=== PATIENT | male | born 1985 | race Caucasian/White ===

== ENCOUNTER 2018-10-30 11:00 | Day surgery (SDC) | payer OTHER ==
[~2018-10-30] VITALS: Ht 177.8 cm; Wt 81.2 kg
[~2018-10-30 11:00] MED LIST: NS 1,000 ML IV SCH; VITMTA PO
[2018-10-30] MEDS ORDERED: LIDOCAINE 2% MDV 20 ML VIAL As Ordered ONE (12:55)
[2018-10-30] MEDS ORDERED: PROPOFOL 200 MG/20 ML VIAL As Ordered ONE (12:55)
--- NOTE | 2018-10-30 14:39 | ROOR ---
Patient Name: Tc Hess Procedure Date: 10/30/2018 1:55 PM Date of : 1985 Age: 33 Room: [facility] Gender: Male Note Status: Finalized Procedure: Upper GI endoscopy Indications: Positive celiac serologies Providers: Jaret Arauz MD Referring MD: LYNN BLAND MD Requesting Provider: Medicines: Monitored Anesthesia Care Complications: No immediate complications. Procedure: Pre-Anesthesia Assessment: - Prior to the procedure, a History and Physical was performed, and patient medications and allergies were reviewed. The patient is competent. The risks and benefits of the procedure and the sedation options and risks were discussed with the patient. All questions were answered and informed consent was obtained. Patient identification and proposed procedure were verified by the physician, the nurse and the anesthesiologist in the procedure room. Mental Status Examination: alert and oriented. Airway Examination: normal oropharyngeal airway and neck mobility. Respiratory Examination: clear to auscultation. CV Examination: normal. Prophylactic Antibiotics: The patient does not require prophylactic antibiotics. Prior Anticoagulants: The patient has taken no previous anticoagulant or antiplatelet agents. ASA Grade Assessment: II - A patient with mild systemic disease. After reviewing the risks and benefits, the patient was deemed in satisfactory condition to undergo the procedure. The anesthesia plan was to use monitored anesthesia care (MAC). Immediately prior to administration of medications, the patient was re-assessed for adequacy to receive sedatives. The heart rate, respiratory rate, oxygen saturations, blood pressure, adequacy of pulmonary ventilation, and response to care were monitored throughout the procedure. The physical status of the patient was re-assessed after the procedure. The Endoscope was introduced through the mouth, and advanced to the second part of duodenum. The upper GI endoscopy was accomplished without difficulty. The patient tolerated the procedure well. Findings: Mucosal changes including longitudinal furrows, crepe paper esophagus and longitudinal markings were found in the middle third of the esophagus and in the lower third of the esophagus. Biopsies were obtained from the proximal and distal esophagus with cold forceps for histology of suspected eosinophilic esophagitis. Verification of patient identification for the specimen was done by the physician and nurse using the patient's name, date and medical record number. Estimated blood loss was minimal. Striped mildly erythematous mucosa without bleeding was found in the gastric antrum. Biopsies were taken with a cold forceps for Helicobacter pylori testing. Diffuse moderately scalloped mucosa was found in the duodenal bulb and in the second portion of the duodenum. Biopsies for histology were taken with a cold forceps for evaluation of celiac disease. Impression: - Esophageal mucosal changes suspicious for eosinophilic esophagitis. Biopsied. - Erythematous mucosa in the antrum. Biopsied. - Scalloped mucosa was found in the duodenum, diagnostic of celiac disease. Biopsied. Recommendation: - Patient has a contact number available for emergencies. The signs and symptoms of potential delayed complications were discussed with the patient. Return to normal activities tomorrow. Written discharge instructions were provided to the patient. - Gluten free diet. - Continue present medications. - Await pathology results. - Repeat upper endoscopy in 1 year to assess disease activity and to evaluate the response to therapy. - Based on the biopsy results you will receive a phone call from GI clinic in 2-3 weeks to review the pathology results AND/OR your results will be faxed to your Primary care physician. - Return to primary care physician. Jaret Arauz MD Jaret Arauz MD 10/30/2018 2:38:49 PM This report has been signed electronically. Number of Addenda: 0 Note Initiated On: 10/30/2018 1:55 PM Estimated Blood Loss: Estimated blood loss was minimal.
[2018-10-30 14:50] VITALS: BP 127/74
== END 2018-10-30 15:04 | disposition home or self-care (01) ==
LOC: M OPP 11:00
PROVIDERS: ATTEND Internal Medicine Gastroenterology
DX: K90.0 Celiac disease (principal); K22.8 Other specified diseases of esophagus; K31.89 Other diseases of stomach and duodenum; R76.8 Other specified abnormal immunological findings in serum